=== PATIENT | female | born 1990 | race African-American/Black ===

== ENCOUNTER 2017-11-04 21:05 | Emergency (ER) | payer OTHER ==
[~2017-11-04] VITALS: Ht 154.9 cm; Wt 49.9 kg
[~2017-11-04 21:05] MED LIST: FLAGYL500 MG PO; IBUPROFEN 600600 M1 PO; KEFLEX500 M1 PO; NOHOMEMEDICATIONS; NORCO 5-325 TA1 EACH PO; TRAMADOL 50 MG50 MG PO
[2017-11-04 22:09] LABS: URINE BILIRUBIN 1+ (Negative); URINE BLOOD TRACE (Negative); URINE CLARITY CLEAR; URINE COLOR YELLOW; URINE GLUCOSE-RANDOM* NEGATIVE (Negative); URINE KETONES TRACE (Negative); URINE LEUKOCYTES-REFLEX NEGATIVE (Negative); URINE NITRITE-REFLEX NEGATIVE (Negative); URINE PROTEIN (DIPSTICK) TRACE (Negative); URINE SPECIFIC GRAVITY >= 1.030 (1.005-1.035); URINE UROBILINOGEN 0.2 E.U./dl (0.2-1.0)
[2017-11-04 22:14] LABS: ICTOTEST (BILI CONFIRMATORY) Positive (Negative)
[2017-11-04 22:38] LABS: ABSOLUTE NEUTROPHILS 3.6 thou/uL (1.4-8.2); BASOPHILS 1.2 % (0.0-2.0); EOSINOPHILS 3.7 % (0.0-3.0); HEMATOCRIT 42.1 % (37.0-47.0); HEMOGLOBIN 15.1 gm/dL (12.0-15.0); LYMPHOCYTES 41.7 % (24.0-44.0); MCH 28.9 pg (26.0-34.0); MCHC 35.8 g/dL (28.0-37.0); MCV 80.7 fL (80.0-100.0); MONOCYTES 6.7 % (1.0-8.0); PLATELET COUNT 247 thou/uL (150-400); POLYS 46.7 % (36.0-66.0); RBC 5.22 mil/uL (4.20-5.00); RDW 13.4 % (10.5-14.5); WBC 7.7 thou/uL (4.0-11.0)
[2017-11-04 22:46] LABS: CALCIUM 9.1 mg/dL (8.5-10.1); CREATININE 0.7 mg/dL (0.6-1.0); POTASSIUM 3.6 mmol/L (3.5-5.1)
[2017-11-04 22:52] LABS: ALBUMIN 4.3 g/dL (3.4-5.0); TOTAL BILIRUBIN 0.7 mg/dL (<0.1-1.0); TOTAL PROTEIN 8.3 g/dL (6.4-8.2)
[2017-11-05] MEDS ORDERED: TRAMADOL 50 MG50 MG PO (00:17)
[2017-11-05] MEDS ORDERED: NAPROSYN500 MG PO (00:17)
[2017-11-05 00:28] LABS: LARGE PLATELETS OCCASIONAL
[2017-11-05] MEDS ORDERED: DOXYCYCLINE 10100 MG PO (00:31)
[2017-11-05 01:48] VITALS: BP 102/60
[2017-11-07 15:11] LABS: NEISSERIA GONORRHEA-PCR Negative (Negative)
== END 2017-11-05 01:27 | disposition home or self-care (01) ==
LOC: ER 21:05
PROVIDERS: Emergency Medicine
DX: N73.9 Female pelvic inflammatory disease, unspecified (principal); N83.201 Unspecified ovarian cyst, right side; N80.9 Endometriosis, unspecified; F17.210 Nicotine dependence, cigarettes, uncomplicated

== ENCOUNTER 2018-04-25 19:40 | Emergency (ER) | payer OTHER ==
[~2018-04-25] VITALS: Ht 157.5 cm; Wt 45.4 kg
[~2018-04-25 19:40] MED LIST changes: +DOXYCYCLINE 10100 MG PO; +NAPROSYN500 MG PO
[2018-04-25 20:32] LABS: URINE BILIRUBIN NEGATIVE (Negative); URINE BLOOD 3+ (Negative); URINE CLARITY CLEAR; URINE COLOR YELLOW; URINE GLUCOSE-RANDOM* NEGATIVE (Negative); URINE KETONES NEGATIVE (Negative); URINE LEUKOCYTES-REFLEX TRACE (Negative); URINE NITRITE-REFLEX NEGATIVE (Negative); URINE PROTEIN (DIPSTICK) NEGATIVE (Negative); URINE UROBILINOGEN 0.2 E.U./dl (0.2-1.0)
[2018-04-25 20:44] LABS: CASTS None Seen /LPF (None Seen); CRYSTALS None Seen /LPF (None Seen); SQUAMOUS >10 Many /LPF (0-3)
[2018-04-25 20:45] LABS: BACTERIA-REFLEX 1-9 Few /HPF (None Seen); MUCUS >6 Heavy strn/LPF (None Seen); URINE RBC >20 Many /HPF (0-2)
[2018-04-25 20:49] LABS: ABSOLUTE NEUTROPHILS 3.7 thou/uL (1.4-8.2); BASOPHILS 0.7 % (0.0-2.0); HEMATOCRIT 38.2 % (37.0-47.0); HEMOGLOBIN 13.7 gm/dL (12.0-15.0); LYMPHOCYTES 35.7 % (24.0-44.0); MCH 29.5 pg (26.0-34.0); MCHC 35.9 g/dL (28.0-37.0); MCV 82.1 fL (80.0-100.0); MONOCYTES 7.9 % (1.0-8.0); PLATELET COUNT 273 thou/uL (150-400); POLYS 49.7 % (36.0-66.0); RBC 4.66 mil/uL (4.20-5.00); RDW 13.7 % (10.5-14.5); WBC 7.5 thou/uL (4.0-11.0)
[2018-04-25 20:54] LABS: CALCIUM 8.9 mg/dL (8.5-10.1); CREATININE 0.7 mg/dL (0.6-1.0); POTASSIUM 3.9 mmol/L (3.5-5.1)
[2018-04-25] MEDS ORDERED: ABREVA2 GM TOP (21:00)
[2018-04-25] MEDS ORDERED: KEFLEX500 M1 PO (21:02)
[2018-04-26 05:53] VITALS: BP 113/77
== END 2018-04-25 20:45 | disposition home or self-care (01) ==
LOC: ER 19:40
PROVIDERS: Nurse Practitioner Family
DX: N39.0 Urinary tract infection, site not specified (principal); L98.8 Other specified disorders of the skin and subcutaneous tissue; R53.1 Weakness; F17.210 Nicotine dependence, cigarettes, uncomplicated

== ENCOUNTER 2019-12-02 15:21 | Emergency (ER) | payer OTHER ==
[~2019-12-02] VITALS: Ht 154.9 cm; Wt 59.0 kg
[~2019-12-02 15:21] MED LIST changes: +ABREVA2 GM TOP
[2019-12-02 15:52] LABS: URINE BILIRUBIN NEGATIVE (Negative); URINE BLOOD TRACE (Negative); URINE CLARITY CLEAR; URINE COLOR YELLOW; URINE GLUCOSE-RANDOM* NEGATIVE (Negative); URINE KETONES NEGATIVE (Negative); URINE LEUKOCYTES-REFLEX 2+ (Negative); URINE NITRITE-REFLEX NEGATIVE (Negative); URINE PROTEIN (DIPSTICK) NEGATIVE (Negative); URINE UROBILINOGEN 0.2 E.U./dl (0.2-1.0)
[2019-12-02 16:00] LABS: CASTS None Seen /LPF (None Seen); CRYSTALS None Seen /LPF (None Seen); SQUAMOUS 0-3 Few /LPF (0-3); URINE RBC 0-2 Rare /HPF (0-2)
[2019-12-02 16:01] LABS: BACTERIA-REFLEX 1-9 Few /HPF (None Seen); URINE WBC-REFLEX 6-15 Few /HPF (0-5)
[2019-12-02] MEDS ORDERED: FLAGYL500 M1 PO (16:52)
[2019-12-02] MEDS ORDERED: MACROBID 100 M100 MG PO (16:52)
[2019-12-02 17:15] VITALS: BP 136/73
== END 2019-12-02 17:20 | disposition home or self-care (01) ==
LOC: ER 15:21
PROVIDERS: Nurse Practitioner Family
DX: A59.09 Other urogenital trichomoniasis (principal); N39.0 Urinary tract infection, site not specified; F17.210 Nicotine dependence, cigarettes, uncomplicated; Z87.42 Personal history of other diseases of the female genital tract